=== PATIENT | female | born 1950 | race Caucasian/White ===

== ENCOUNTER 2018-07-24 21:33 | Emergency (ER) | payer MEDICARE, MEDICAID ==
[~2018-07-24] VITALS: Ht 167.6 cm; Wt 68.0 kg
[2018-07-24 21:50] VITALS: Ht 167.6 cm; Wt 68.0 kg
[2018-07-24 23:06] LABS: microscopic required? NO
[2018-07-24 23:13] LABS: urine erythrocyte NEGATIVE (NEGATIVE)
[2018-07-25 00:04] VITALS: BP 140/67
== END 2018-07-25 00:04 | disposition home or self-care (01) ==
LOC: ED 21:33
PROVIDERS: Emergency Medicine
DX: M54.41 Lumbago with sciatica, right side (principal); I10 Essential (primary) hypertension; E11.9 Type 2 diabetes mellitus without complications
CPT/HCPCS: J1885